=== PATIENT | male | born 1985 | race American Indian/Alaskan Native ===

== ENCOUNTER 2021-04-07 14:59 | Emergency (ER) | payer SELFPAY ==
[2021-04-07] MEDS ORDERED: ONDANSETRON 4 MG ODT TAB PO ONE (15:35)
[2021-04-07] MEDS ORDERED: PANTOPRAZOLE 40 MG TAB PO ONE (15:35)
[2021-04-07] MEDS ORDERED: SUCRALFATE 1 GM/10 ML ORAL LIQD PO ONE (15:35)
[2021-04-07] MEDS ORDERED: ACETAMINOPHEN 325 MG/10.15 ML ORAL LIQD UNIT DOSE PO ONE (15:35)
--- NOTE | 2021-04-07 15:37 | Emergency Department Report ---
ED General Adult HPI - General Chief complaint: Nausea/Vomiting/Diarrhea Stated complaint: VOMITTING,BLOOD CLOTS Time Seen by Provider: 04/07/21 15:27 Source: patient, RN notes reviewed Mode of arrival: Ambulatory Limitations: No Limitations - History of Present Illness Initial comments: The patient was evaluated in the emergency department for symptoms described in the history of present illness. He/she was evaluated in the context of the global COVID-19 pandemic, which necessitated consideration that the patient might be at risk for infection with the virus that causes COVID-19. Institutional protocols and algorithms that pertain to the evaluation of patients at risk for COVID-19 are in a state of rapid change based on information released by regulatory bodies including the CDC and federal and state organizations. These policies and algorithms were followed during the patient's care in the emergency department. Please note that these policies, procedures and recommendations changed on a rapid basis. The patient is a pleasant 36-year-old gentleman, who presents to the ER today with a complaint of epigastric abdominal cramping, and nausea and vomiting. This started a few days ago after he consumed alcohol which he reports that he really does. He is not COVID-19 vaccinated, and he reports clear/yellow emesis, followed by dark emesis. He does not have bloody or black stool that he is aware of. He does not take anticoagulants. He denies travel, surgery, immobilization, DVT/PE risk factors. He endorses some shortness of breath. This is painless. It is not exertional. He occasionally consumes tobacco and or marijuana. He feels like his symptoms have basically started after he consumed alcohol for celebratory event -: Gradual, days(s) Location: abdomen Radiation: non-radiation Quality: aching Consistency: intermittent Improves with: none Worsens with: eating - Related Data Previous Rx's Medication Instructions Recorded Last Taken Type Metoclopramide [Reglan] 10 mg PO QID PRN #30 tablet 04/07/21 Unknown Rx Pantoprazole [Protonix] 40 mg PO QDAY #30 tablet 04/07/21 Unknown Rx Allergies Allergy/AdvReac Type Severity Reaction Status Date / Time No Known Allergies Allergy Unverified 04/07/21 15:13 ED Review of Systems ROS: Stated complaint: VOMITTING,BLOOD CLOTS Other details as noted in HPI Constitutional: denies: fever, malaise Eyes: denies: eye discharge ENT: denies: congestion Respiratory: shortness of breath Cardiovascular: denies: chest pain Gastrointestinal: as per HPI, abdominal pain, nausea, vomiting. denies: melena, hematochezia Genitourinary: denies: dysuria, testicular pain Neurological: denies: weakness Psychiatric: anxiety Hematological/Lymphatic: denies: easy bleeding ED Past Medical Hx - Medications Home Medications: Home Medications Medication Instructions Recorded Confirmed Last Taken Type Metoclopramide [Reglan] 10 mg PO QID PRN #30 tablet 04/07/21 Unknown Rx Pantoprazole [Protonix] 40 mg PO QDAY #30 tablet 04/07/21 Unknown Rx ED Physical Exam - General Limitations: No Limitations General appearance: alert, in no apparent distress - Head Head exam: Present: atraumatic, normocephalic - Eye Eye exam: Present: normal appearance, EOMI. Absent: nystagmus - ENT ENT exam: Present: normal exam, normal orophraynx, mucous membranes moist, normal external ear exam - Neck Neck exam: Present: normal inspection, full ROM. Absent: tenderness, meningismus - Respiratory Respiratory exam: Present: normal lung sounds bilaterally. Absent: respiratory distress, wheezes, rales, rhonchi, stridor, decreased breath sounds - Cardiovascular Cardiovascular Exam: Present: regular rate, normal rhythm, normal heart sounds. Absent: bradycardia, tachycardia, irregular rhythm, systolic murmur, diastolic murmur, rubs, gallop - GI/Abdominal GI/Abdominal exam: Present: soft, normal bowel sounds. Absent: distended, tenderness, guarding, rebound, rigid, pulsatile mass - Rectal Rectal exam: Present: deferred (Patient declined a rectal examination. A rectal examination was recommended and offered) - Extremities Exam Extremities exam: Present: normal inspection, full ROM, other (2+ pulses noted in the bilateral upper and lower extremities. There is no palpable cord. negative Homans sign. Muscular compartments are soft. The pelvis is stable.). Absent: pedal edema, calf tenderness - Back Exam Back exam: Present: normal inspection, full ROM. Absent: tenderness, CVA tenderness (R), CVA tenderness (L), paraspinal tenderness, vertebral tenderness - Neurological Exam Neurological exam: Present: alert, oriented X3, normal gait, other (No facial droop. Tongue midline. Extraocular movements intact bilaterally. Facial sensation intact to light touch in V1, V2, V3 distribution bilaterally. 5 and a 5 strength in 4 extremities. Sensation intact to light touch in 4 extremities.). Absent: motor sensory deficit - Psychiatric Psychiatric exam: Present: anxious - Skin Skin exam: Present: warm, dry, intact, normal color. Absent: rash ED Course Vital Signs 04/07/21 15:17 Temperature 98.0 F Pulse Rate 92 H Respiratory 20 Rate Blood Pressure 128/60 O2 Sat by Pulse 99 Oximetry - Reevaluation(s) Reevaluation #1: 04/07/21 16:41 Differential diagnosis, including the not limited to: Alcoholic gastritis, gastritis, GERD, hiatal hernia, pneumonia Assessment and plan: 36-year-old gentleman, who denies DVT and pulmonary embolism risk factors, who is low risk by Wells criteria for pulmonary embolism, who is PERC negative, presenting to the ER with a complaint of epigastric abdominal cramping and nausea/vomiting, likely GERD/gastritis/alcoholic gastritis. Abdomen is soft and benign, without rebound, guarding or peritoneal signs. I recommended a rectal examination, which the patient declined. Specifically counseled patient on significance and importance of rectal examination. X-ray the chest is unremarkable. Laboratory studies pending. We will treat this patient supportively and symptomatically. Presuming laboratory studies unremarkable, anticipate discharge with PPI, antiemetics, diet lifestyle modifications, and instructions to follow-up with outpatient GI 04/07/21 18:01 Laboratory studies reviewed and appreciated. Leukocytosis likely a stress reaction. Abdomen soft and benign. Elevated BUN may be secondary to to dehydration, or Nell-Edgar tear/gastritis. Patient tolerating oral challenge. Suitable for discharge at this point in time. Return precautions reviewed ED Medical Decision Making - Lab Data Result diagrams: 04/07/21 16:44 04/07/21 16:44 Vital Signs 04/07/21 15:17 Temperature 98.0 F Pulse Rate 92 H Respiratory 20 Rate Blood Pressure 128/60 O2 Sat by Pulse 99 Oximetry Lab Results 04/07/21 04/07/21 04/07/21 Range/Units 16:44 16:44 16:44 WBC 13.0 H (4.5-11.0) K/mm3 RBC 4.17 (3.65-5.03) M/mm3 Hgb 13.3 (11.8-15.2) gm/dl Hct 39.0 (35.5-45.6) % MCV 94 (84-94) fl MCH 32 (28-32) pg MCHC 34 (32-34) % RDW 12.9 L (13.2-15.2) % Plt Count 206 (140-440) K/mm3 PT 13.5 (12.2-14.9) Sec. INR 0.93 (0.87-1.13) Sodium 141 (137-145) mmol/L Potassium 4.4 (3.6-5.0) mmol/L Chloride 103.7 (98-107) mmol/L Carbon Dioxide 24 (22-30) mmol/L Anion Gap 18 mmol/L BUN 41 H (9-20) mg/dL Creatinine 0.9 (0.8-1.3) mg/dL Estimated GFR > 60 ml/min BUN/Creatinine Ratio 46 % Glucose 115 H (75-100) mg/dL Calcium 9.1 (8.4-10.2) mg/dL Total Bilirubin 0.80 (0.1-1.2) mg/dL AST 15 (5-40) units/L ALT 16 (7-56) units/L Alkaline Phosphatase 57 (35-129) units/L Total Protein 6.6 (6.3-8.2) g/dL Albumin 4.4 (3.9-5) g/dL Albumin/Globulin Ratio 2.0 % Lipase 41 (13-60) units/L - EKG Data -: EKG Interpreted by Ms EKG shows normal: sinus rhythm Rate: normal - EKG Data 04/07/21 16:39 The EKG is interpreted at 15: 42 sinus rhythm, 68 bpm. Normal axis, normal intervals, normal P wave axis. Unremarkable EKG. Not a STEMI. - Radiology Data Radiology results: pending, report reviewed, image reviewed CHEST 2 VIEWS INDICATION: dyspnea n/v. COMPARISON: None FINDINGS: Support devices: None. Heart: Within normal limits. Lungs/Pleura: No acute air space or interstitial disease. No significant pleural effusion. IMPRESSION: No acute findings. Signer Name: Eric Joseph MD Signed: 04/07/2021 3:25 PM Workstation Name: [email or web address] Critical care attestation.: If time is entered above; I have spent that time in minutes in the direct care of this critically ill patient, excluding procedure time. ED Disposition Clinical Impression: Epigastric abdominal pain, History of nausea and vomiting, COVID-19 vaccination not done Disposition: 01 HOME / SELF CARE / HOMELESS Is pt being admited?: No Does the pt Need Aspirin: No Condition: Stable Instructions: Gastritis, Adult, [id number] Additional Instructions: Please take the Protonix as directed, and use the nausea medication as needed and directed. Do not take Motrin, ibuprofen, Naprosyn, Aleve. Patient may take [id number] Tylenol/acetaminophen as needed for physical pain. Recommend that patient avoid consumption of alcohol, tobacco, marijuana and smoke products. Recommend the patient complete COVID-19 vaccination series including booster. Recommend follow-up with an outpatient primary care doctor or rough rice grader within the next 2 to 3 weeks. Please return to the emergency room right away with new pain, worsened pain, migration of pain, projectile vomiting, change in mental status, confusion, inability tolerate liquid feeds, new, worsened or different symptoms not present on the initial emergency room evaluation Prescriptions: Pantoprazole [Protonix] 40 mg PO QDAY #30 tablet Metoclopramide [Reglan] 10 mg PO QID PRN #30 tablet PRN Reason: Nausea Referrals: [facility] [Provider Group] - 3-5 Days [facility] [Provider Group] - 3-5 Days Forms: Work/School Release Form(ED)
--- NOTE | 2021-04-07 16:29 | XRay Report ---
CHEST 2 VIEWS INDICATION: dyspnea n/v. COMPARISON: None FINDINGS: Support devices: None. Heart: Within normal limits. Lungs/Pleura: No acute air space or interstitial disease. No significant pleural effusion. IMPRESSION: No acute findings. Signer Name: Eric Joseph MD Signed: 04/07/2021 4:25 PM Workstation Name: [id number]
[2021-04-07 17:02] LABS: Hemoglobin 13.3 gm/dl (11.8-15.2); Mean Corpuscular HGB Conc 34 % (32-34); Mean Corpuscular Volume 94 fl (84-94); Platelet Count 206 K/mm3 (140-440); Red Blood Count 4.17 M/mm3 (3.65-5.03); Red Cell Distribution Width 12.9 % (13.2-15.2)
[2021-04-07 17:10] LABS: INR 0.93 (0.87-1.13)
[2021-04-07 17:24] LABS: Alanine Aminotransferase 16 units/L (7-56); Albumin 4.4 g/dL (3.9-5); BUN/Creatinine Ratio 46; Blood Urea Nitrogen 41 mg/dL (9-20); Calcium 9.1 mg/dL (8.4-10.2); Hemolysis Index 18
[2021-04-07 18:16] VITALS: BP 117/81
--- NOTE | 2021-04-09 14:23 | Electrocardiograph Report ---
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
== END 2021-04-07 18:16 | disposition home or self-care (01) ==
LOC: EDBD → ED 14:59
DX: R10.13 Epigastric pain (principal); R11.2 Nausea with vomiting, unspecified
CPT/HCPCS: 36415; 71046; 80053; 83690; 85027; 85610; 93005; 93010; 99284; J3490; Q0162